=== PATIENT | male | born 2000 | race Hispanic/Latino ===

== ENCOUNTER 2022-02-02 00:32 | Emergency (ER) | payer MEDICAID, OTHER ==
[~2022-02-02] VITALS: Ht 154.9 cm; Wt 63.5 kg
[2022-02-02 01:14] VITALS: BP 123/70
[2022-02-02] MEDS ORDERED: HYDR25CA PO (01:14)
== END 2022-02-02 01:21 | disposition home or self-care (01) ==
LOC: EDH 00:32
DX: F41.0 Panic disorder [episodic paroxysmal anxiety] (principal); F45.8 Other somatoform disorders; F12.90 Cannabis use, unspecified, uncomplicated